=== PATIENT | male | born 1995 | race African-American/Black ===

== ENCOUNTER 2021-12-17 07:20 | Emergency (ER) | payer OTHER, BC ==
[~2021-12-17] VITALS: Ht 175.3 cm; Wt 89.0 kg
[2021-12-17] MEDS ORDERED: LEVO25TA7 PO (07:52)
[2021-12-17] MEDS ORDERED: IBUP-2028 PO (08:48)
[2021-12-17] MEDS ORDERED: T3 PO (08:48)
== END 2021-12-17 09:33 | disposition home or self-care (01) ==
LOC: ER 07:20
DX: M25.561 Pain in right knee (principal); Z90.49 Acquired absence of other specified parts of digestive tract
CPT/HCPCS: 73560; 99283

== ENCOUNTER 2021-12-19 16:18 | Emergency (ER) | payer OTHER, BC ==
[~2021-12-19 16:18] MED LIST: IBUP-2028 PO; LEVO25TA7 PO; T3 PO
== END 2021-12-19 16:37 | disposition left against medical advice (07) ==
LOC: ER 16:29
DX: Z53.21 Procedure and treatment not carried out due to patient leaving prior to being seen by health care provider (principal)